=== PATIENT | female | born 1960 | race American Indian/Alaskan Native ===

== ENCOUNTER 2017-12-22 08:52 | Outpatient (CLI) | payer MEDICAID ==
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
--- NOTE | 2017-12-22 13:01 | Cat Scan Report ---
CT ABDOMEN AND PELVIS WITHOUT CONTRAST INDICATION: Abdominal pain. COMPARISON: None similar. FINDINGS: Abdomen and pelvis CT performed following oral contrast only. LUNG BASES: Mild air filled distal esophageal prominence/thickening, not excluded for gastroesophageal reflux and/or hiatal hernia, amongst others. Slight extreme right lung base scarring. Small left pleural effusion, approximately 1.3 cm AP with slight underlying atelectasis. ABDOMEN: Please note that sensitivity to detect small visceral lesions is limited due to the absence of intravenous contrast. However, grossly unremarkable unenhanced liver, spleen, somewhat contracted gallbladder, pancreas, adrenals, aorta, IVC and kidneys. Opacified small bowel nonobstructive. Moderate stool throughout colon/possible constipation. No ascites or definite size significant adenopathy. PELVIS: Rectosigmoid stool. Proximal sigmoid noted redundant and somewhat high-rising to the level of the left kidney. Grossly age appropriate seminal vesicles and prostate. Left anterolateral urinary bladder wall somewhat asymmetrically deviated towards the left groin as on axial image 139, series 2. Multiple anterior pelvic wall mesh hernia repair salma noted. Few pelvic phleboliths. No free fluid or significant adenopathy. Left SI joint degenerative bridging. CONCLUSION: Constipation and a small left pleural effusion noted with few other incidental findings on this unenhanced exam, as described. Please correlate. Thank you for the opportunity to participate in this patient's care.
== END 2017-12-22 08:53 | disposition home or self-care (01) ==
LOC: CT 08:52
PROVIDERS: ATTEND Internal Medicine
DX: K59.00 Constipation, unspecified (principal); J90 Pleural effusion, not elsewhere classified
CPT/HCPCS: 71046; 74176